=== PATIENT | male | born 1960 | race Caucasian/White ===

== ENCOUNTER 2017-06-03 15:11 | Emergency (ER) | payer SELFPAY ==
[~2017-06-03] VITALS: Ht 185.4 cm; Wt 77.0 kg
[~2017-06-03 15:11] MED LIST: ERYT.5%O RIGHT EYE; LANTUSP SQ
[2017-06-03 15:18] VITALS: BP 107/65; PULSE 95; RESP 16; TEMP 98.9; O2SAT 95
[2017-06-03 15:32] VITALS: BP 107/65; PULSE 95; RESP 16; TEMP 98.8; O2SAT 95
[2017-06-03] MEDS ORDERED: CEPH-460 PO (15:45)
[2017-06-03] MEDS ORDERED: CEPHALEXIN MONOHYDRATE 500 MG CAP PO ONE (15:45)
--- NOTE | 2017-06-03 15:45 | PD ---
HPI Chief Complaint: Wound/Suture/Staple Re-Check Time Seen by Provider: 15:39 Travel History International Travel<30 days: No Contact w/Intl Traveler<30days: No Traveled to known affect area: No History of Present Illness HPI This 57-year-old male is complaining of a wound on his right knee. He has a history of diabetes and has had any problems with infections. 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 He was admitted to the hospital in [facility] because of an infection on the right knee. He was in the hospital for 5 days. The infection has not resolved. He is not aware of fever or chills. PFSH Past Medical History Diabetes: Yes Diminished Hearing: Yes Social History Alcohol Use: No Tobacco Use: No Allergies-Medications (Allergen,Severity, Reaction): Coded Allergies: No Known Allergies (Unverified , 06/03/17) Reported Meds & Prescriptions Reported Meds & Active Scripts Active Ilotycin (Erythromycin) 3.5 Gm Oint 1 Dose RIGHT EYE QID 5 Days Reported Lantus (Insulin Glargine) 100 Units/Ml Inj 0 SQ DIRECTED Sliding Scale As Directed. Review of Systems General / Constitutional: No: Fever, Chills Eyes: No: Diploplia HENT: No: Headaches Cardiovascular: No: Chest Pain or Discomfort, Palpitations Gastrointestinal: No: Nausea, Vomiting Genitourinary: No: Urgency, Frequency Musculoskeletal: No: Myalgias, Arthralgias Skin: No Rash, No Itching Neurologic: No: Weakness Physical Exam Narrative GENERAL: Well-developed male SKIN: Focused skin assessment warm/dry. There is an ulcerative lesion overlying the knee which is approximately 2 cm in diameter. There is some surrounding erythema. It is not hot. There is no spontaneous drainage. There is no fluctuance to palpation. He can flex and extend the knee without discomfort. HEAD: Atraumatic. Normocephalic. EYES: Pupils equal and round. No scleral icterus. No injection or drainage. ENT: No nasal bleeding or discharge. Mucous membranes pink and moist. NECK: Trachea midline. No JVD. CARDIOVASCULAR: Regular rate and rhythm. No murmur appreciated. RESPIRATORY: No accessory muscle use. Clear to auscultation. Breath sounds equal bilaterally. GASTROINTESTINAL: Abdomen soft, non-tender, nondistended. Hepatic and splenic margins not palpable. MUSCULOSKELETAL: No obvious deformities. No clubbing. No cyanosis. No edema. He has had a below-knee amputation of the left leg. On the right leg he has the above-described wound. He has good pulses. He has diminished sensation in the leg NEUROLOGICAL: Awake and alert. No obvious cranial nerve deficits. Motor grossly within normal limits. Normal speech. PSYCHIATRIC: Appropriate mood and affect; insight and judgment normal. Data Data Last Documented VS Vital Signs Date Time Temp Pulse Resp B/P (MAP) Pulse Ox O2 Delivery O2 Flow Rate FiO2 06/03/17 15:32 98.8 95 16 107/65 (79) 95 Orders Orders Wound Culture And Gram Stain (06/03/17 15:37) Cephalexin (Keflex) (06/03/17 15:45) MDM Medical Decision Making Medical Screen Exam Complete: Yes Emergency Medical Condition: Yes Medical Record Reviewed: Yes Differential Diagnosis Differential includes wound to right knee, ulceration, cellulitis Narrative Course The wound appears somewhat chronic. I'm going to prescribe Keflex 500 4 times a day. He is stable for discharge Diagnosis Primary Impression: Open wound of right knee Qualified Codes: S81.001D - Unspecified open wound, right knee, subsequent encounter Scripts Cephalexin (Keflex) 500 Mg Capsule 500 MG PO Q6H for Infection for 10 Days, #40 CAP 0 Refills Prov: Abdi Coronado MD 06/03/17 Disposition: 01 DISCHARGE HOME Condition: Stable Abdi Coronado MD Jun 03, 2017 15:45
[2017-06-03 16:16] VITALS: BP 108/63; PULSE 95; RESP 14; O2SAT 100
== END 2017-06-03 16:22 | disposition home or self-care (01) ==
LOC: PHED 15:11
DX: S81.001D Unspecified open wound, right knee, subsequent encounter (principal); E11.9 Type 2 diabetes mellitus without complications; B96.89 Other specified bacterial agents as the cause of diseases classified elsewhere; H91.90 Unspecified hearing loss, unspecified ear; Z79.4 Long term (current) use of insulin; Z89.512 Acquired absence of left leg below knee; X58.XXXD Exposure to other specified factors, subsequent encounter
CPT/HCPCS: 87070; 87077; 87186; 99283